=== PATIENT | male | born 1955 | race Caucasian/White ===

== ENCOUNTER → 2017-07-01 | Outpatient (REF) | payer BC ==
[2017-07-13 00:08] LABS: DEOXYCORTICOSTERONE LEVEL 9.2 ng/dL (.)
== END ==
LOC: M LABDRAW1 13:08
PROVIDERS: ATTEND Physical Medicine & Rehabilitation
DX: M51.37 Other intervertebral disc degeneration, lumbosacral region (principal)
CPT/HCPCS: 36415; 80307; 81374; 82633; 85652; 86140; G0480

== ENCOUNTER → 2017-08-15 | Outpatient (REF) | payer BC | LOC: M LAB REF 11:02 | PROVIDERS: ATTEND Ophthalmology | DX: H02.831 Dermatochalasis of right upper eyelid (principal); H02.834 Dermatochalasis of left upper eyelid ==

== ENCOUNTER → 2018-06-23 | Outpatient (REF) | payer BC | LOC: M LABDRAW1 15:48 | DX: Z79.891 Long term (current) use of opiate analgesic (principal) | CPT/HCPCS: 80307 ==

== ENCOUNTER → 2018-12-18 | Outpatient (REF) | payer OTHER ==
[2018-12-18 14:06] LABS: COMPLEMENT C3 157 MG/DL (90-180); COMPLEMENT C4 34 MG/DL (10-40); TOTAL PROTEIN 7.5 GM/DL (6.4-8.2)
[2018-12-18 14:10] LABS: URINE TOTAL PROTEIN 38.5 MG/DL (0-12)
[2018-12-18 14:13] LABS: HEPATITIS B SURFACE ANTIBODY NEGATIVE (POSITIVE)
[2018-12-18 14:24] LABS: HEPATITIS B SURFACE ANTIGEN NEGATIVE (NEGATIVE)
[2018-12-18 14:52] LABS: HEPATITIS B CORE ANTIBODY IGM NEGATIVE (NEGATIVE); HEPATITIS C VIRUS ABY INDEX 0.1 INDEX (<0.8)
[2018-12-19 10:18] LABS: ALBUMIN 4.48 GM/DL (3.29-5.55); ALBUMIN % 59.7 % (55.8-66.1); ALPHA-1-GLOBULIN % 3.6 % (2.9-4.9); ALPHA-1-GLOBULINS 0.27 GM/DL (0.17-0.41)
[2018-12-19 10:19] LABS: ALPHA-2-GLOBULINS % 10.7 % (7.1-11.8); BETA-1-GLOBULINS 0.47 GM/DL (0.28-0.60); BETA-1-GLOBULINS % 6.3 % (4.7-7.2); BETA-2-GLOBULINS 0.45 GM/DL (0.19-0.55); GAMMA GLOBULIN % 13.7 % (11.1-18.8); GAMMA GLOBULINS 1.03 GM/DL (0.65-1.58)
[2018-12-21 13:49] LABS: UPEP INTERPRETATION NO M-SPIKE NOTED; URINE VOLUME RANDOM ML
[2018-12-21 14:14] LABS: ANCA-ATYPICAL <1:20 titer (Neg:<1:20); ANTI DOUBLE STRAND-DNA AB 2 IU/mL (0-9); ANTI-GLOMERULAR BASEMENT MEMB 3 units (0-20); ANTINUCLEAR ANTIBODIES DIRECT Negative (Negative); CYTOPLASMIC NEUTROP AB ANCA-C <1:20 titer (Neg:<1:20); PERINUCLEAR AB ANCA-P <1:20 titer (Neg:<1:20)
== END ==
LOC: M LAB REF 13:04
PROVIDERS: ATTEND Internal Medicine Nephrology
DX: I12.9 Hypertensive chronic kidney disease with stage 1 through stage 4 chronic kidney disease, or unspecified chronic kidney disease (principal); R80.9 Proteinuria, unspecified

== ENCOUNTER → 2021-03-24 | Outpatient (REF) | payer OTHER | LOC: M LAB REF 17:14 | PROVIDERS: ATTEND Internal Medicine Nephrology | DX: N18.2 Chronic kidney disease, stage 2 (mild) (principal) ==

== ENCOUNTER → 2021-10-30 | Outpatient (REF) | payer MEDICARE, OTHER | LOC: M LAB REF 16:45 | PROVIDERS: ATTEND Nurse Practitioner Family | DX: N18.31 Chronic kidney disease, stage 3a (principal) ==

== ENCOUNTER → 2022-03-16 | Outpatient (CLI) | payer MEDICARE, OTHER ==
[~2022-03-16] MED LIST: ASPI325T57 PO; LIDOCAINE 1% MDV 20ML VIAL As Ordered ONE
[2022-03-16 14:06] VITALS: BP 170/90
== END ==
LOC: M IRPRO 13:13
PROVIDERS: ATTEND Otolaryngology
DX: C76.8 Malignant neoplasm of other specified ill-defined sites (principal)

== ENCOUNTER → 2022-04-19 | Outpatient (CLI) | payer MEDICARE, OTHER ==
[~2022-04-19] MED LIST changes: +ALOG25TA PO; +AMIL25TA PO; +AMLO1TAB25 PO; +ATOR40TA75 PO; +BASA100I SQ; +CARV25TA PO; +HYDR-3713 PO; -LIDOCAINE 1% MDV 20ML VIAL As Ordered ONE; +METF10004 PO; +MINO2.5T PO; +OXYC1SOL3 PO; +STEG5TAB PO; +VALS320T3 PO
== END ==
LOC: M ONCR 12:55
PROVIDERS: ATTEND General Practice
DX: C01 Malignant neoplasm of base of tongue (principal); R25.2 Cramp and spasm; Z87.891 Personal history of nicotine dependence; Z91.041 Radiographic dye allergy status; Z79.84 Long term (current) use of oral hypoglycemic drugs; Z79.4 Long term (current) use of insulin; Z79.899 Other long term (current) drug therapy; Z79.891 Long term (current) use of opiate analgesic
CPT/HCPCS: 31575; G0463

== ENCOUNTER → 2022-05-06 | Outpatient (CLI) | payer MEDICARE, OTHER ==
[~2022-05-06] MED LIST changes: +ACETAMINOPHEN 325 MG TAB As Ordered ONE; +ACETAMINOPHEN TAB 650MG DOSE (2X325MG) PO ONE; +B-12100010 PO; +ELIQ5TAB4 PO; +LIDOCAINE 1% MDV 20ML VIAL As Ordered ONE; +MIDAZOLAM INJ 2MG/2ML VIAL (J2250 PER 1MG) As Ordered ONE; +MIDAZOLAM INJ 2MG/2ML VIAL (J2250 PER 1MG) IV ONE; +NS 1,000 ML IV SCH; +ONDA-84 PO; +PROC10TA5 PO; +ceFAZolin 2 GM/D5W 50 ML IV BAG (J0690 PER 500MG) As Ordered ONE; +ceFAZolin SOD 2 GM in IV 1 EA IV ONE; +diphenhydrAMINE 50MG/ML VIAL (J1200) As Ordered ONE; +fentaNYL 100 MCG/2 ML INJECTION As Ordered ONE; +fentaNYL 100 MCG/2 ML INJECTION IV ONE
[2022-05-06 12:45] VITALS: BP 147/69
== END ==
LOC: M IRPRO 09:33
PROVIDERS: ATTEND Specialist
DX: C01 Malignant neoplasm of base of tongue (principal)
CPT/HCPCS: 36561; 99152; 99153; C1769; C1788; C1894; J0690; J1642; J1644; J2250; J3010

== ENCOUNTER → 2022-05-19 | Outpatient (RCR) | payer MEDICARE, OTHER ==
[~2022-05-19] MED LIST changes: -ACETAMINOPHEN 325 MG TAB As Ordered ONE; -ACETAMINOPHEN TAB 650MG DOSE (2X325MG) PO ONE; +LIDO1CRE42 TOP; -LIDOCAINE 1% MDV 20ML VIAL As Ordered ONE; -MIDAZOLAM INJ 2MG/2ML VIAL (J2250 PER 1MG) As Ordered ONE; -MIDAZOLAM INJ 2MG/2ML VIAL (J2250 PER 1MG) IV ONE; -NS 1,000 ML IV SCH; +OXYC-517 PO; -ceFAZolin 2 GM/D5W 50 ML IV BAG (J0690 PER 500MG) As Ordered ONE; -ceFAZolin SOD 2 GM in IV 1 EA IV ONE; -diphenhydrAMINE 50MG/ML VIAL (J1200) As Ordered ONE; -fentaNYL 100 MCG/2 ML INJECTION As Ordered ONE; -fentaNYL 100 MCG/2 ML INJECTION IV ONE
== END ==
LOC: M ONCR 04-26 08:03
PROVIDERS: ATTEND General Practice
DX: C01 Malignant neoplasm of base of tongue (principal)

== ENCOUNTER → 2022-06-02 | Outpatient (CLI) | payer MEDICARE, OTHER ==
[~2022-06-02] MED LIST changes: +CEPH500C PO; +CIPR750T2 PO; +FLOM0.4C39 PO; +LEVO1TAB38 PO; +MAGICMW PO; +MORP-69 PO; +NYST50SS PO; +OXYC10TA12 PO; +POTA-151 PO
== END ==
LOC: M ONCR 10:37
PROVIDERS: ATTEND Dietitian, Registered
DX: C01 Malignant neoplasm of base of tongue (principal); Z71.3 Dietary counseling and surveillance

== ENCOUNTER → 2022-06-18 | Outpatient (RCR) | payer MEDICARE, OTHER ==
[~2022-06-18] MED LIST changes: -CIPR750T2 PO; -FLOM0.4C39 PO; -POTA-151 PO
== END ==
LOC: M ONCR 05-20 13:26
PROVIDERS: ATTEND General Practice
DX: C01 Malignant neoplasm of base of tongue (principal)

== ENCOUNTER 2022-06-30 13:29 | Outpatient (RCR) | payer MEDICARE, OTHER ==
[2022-07-14] MEDS ORDERED: OXYC10TA12 PO (11:26)
== END 2022-07-19 ==
LOC: M ONCR 13:29
PROVIDERS: ATTEND General Practice
DX: C01 Malignant neoplasm of base of tongue (principal)

== ENCOUNTER → 2022-07-14 | Outpatient (CLI) | payer MEDICARE, OTHER | LOC: M ONCR 10:17 | PROVIDERS: ATTEND General Practice | DX: C01 Malignant neoplasm of base of tongue (principal); Z92.21 Personal history of antineoplastic chemotherapy; Z92.3 Personal history of irradiation ==

== ENCOUNTER → 2022-08-04 | Outpatient (CLI) | payer MEDICARE, OTHER ==
[~2022-08-04] MED LIST changes: +CIPR750T2 PO; +FLOM0.4C39 PO; +POTA-151 PO; +SODIUM CHLORIDE 0.9% INJ 10 ML SYR IV PRN
[2022-08-04 12:13] LABS: BASO % 0.5 % (0.0-1.0); EOS % 0.7 % (0.0-3.0); HEMOGLOBIN 10.5 g/dl (13.5-17.5); LYMPH # 0.3 10^3/uL (1.5-5.0); LYMPH % 5.7 % (24.0-44.0); MEAN CORPUSCULAR HEMOGLOBIN 30.2 pg (27.0-33.0); MEAN CORPUSCULAR VOLUME 86.2 fl (80.0-96.0); MONO # 0.6 10^3/uL (0.0-0.8); MONO % 12.4 % (2.0-8.0); NEUTROPHILS # 3.5 10^3/uL (1.5-8.5); NEUTROPHILS % 79.8 % (36.0-66.0); PLATELET COUNT, AUTOMATED 212 10^3/uL (150-450); RED BLOOD COUNT 3.48 10^6/uL (4.30-6.10); WHITE BLOOD COUNT 4.4 10^3/uL (4.0-10.0)
[2022-08-04 12:49] LABS: ALBUMIN 3.1 G/DL (3.2-5.2); BILIRUBIN,TOTAL 1.2 MG/DL (0.3-1.2); CALCIUM LEVEL 8.6 MG/DL (8.3-10.6); CREATININE FOR GFR 1.3 MG/DL (0.70-1.30); POTASSIUM SERUM 2.9 MMOL/L (3.5-5.1); TOTAL PROTEIN 5.9 G/DL (5.7-8.2)
== END ==
LOC: M ONCR 11:47
PROVIDERS: ATTEND General Practice
DX: R30.0 Dysuria (principal); R39.198 Other difficulties with micturition
CPT/HCPCS: 36415; 36591; 80053; 81000; 85025; 87086; G0463

== ENCOUNTER → 2022-08-20 | Outpatient (CLI) | payer MEDICARE, OTHER ==
[~2022-08-20] MED LIST changes: -SODIUM CHLORIDE 0.9% INJ 10 ML SYR IV PRN
== END ==
LOC: M ONCR 11:23
PROVIDERS: ATTEND General Practice
DX: C02.9 Malignant neoplasm of tongue, unspecified (principal); H92.02 Otalgia, left ear; M54.2 Cervicalgia; R22.1 Localized swelling, mass and lump, neck

== ENCOUNTER → 2022-10-04 | Outpatient (CLI) | payer MEDICARE, OTHER ==
[~2022-10-04] MED LIST changes: +NYST-38 PO; -NYST50SS PO
== END ==
LOC: M PLARAD 08:58
PROVIDERS: ATTEND General Practice
DX: C01 Malignant neoplasm of base of tongue (principal)
CPT/HCPCS: 78815; A9552

== ENCOUNTER → 2022-10-08 | Outpatient (CLI) | payer MEDICARE, OTHER | LOC: M ONCR 15:24 | PROVIDERS: ATTEND General Practice | DX: C01 Malignant neoplasm of base of tongue (principal); I89.0 Lymphedema, not elsewhere classified; R47.1 Dysarthria and anarthria; Z79.01 Long term (current) use of anticoagulants; Z79.4 Long term (current) use of insulin; Z79.84 Long term (current) use of oral hypoglycemic drugs; Z79.891 Long term (current) use of opiate analgesic; Z79.899 Other long term (current) drug therapy; Z87.891 Personal history of nicotine dependence; Z91.041 Radiographic dye allergy status; Z92.21 Personal history of antineoplastic chemotherapy; Z92.3 Personal history of irradiation | CPT/HCPCS: 31575; G0463 ==

== ENCOUNTER → 2022-11-16 | Outpatient (RCR) | payer MEDICARE, OTHER ==
[~2022-11-16] MED LIST changes: +SALA1TAB PO
== END ==
LOC: M PT 10-22 14:51
PROVIDERS: ATTEND General Practice
DX: I89.0 Lymphedema, not elsewhere classified (principal); C01 Malignant neoplasm of base of tongue

== ENCOUNTER 2022-11-26 15:45 | Outpatient (RCR) | payer MEDICARE, OTHER | END 2022-12-17 | LOC: M PT 15:45 | PROVIDERS: ATTEND General Practice | DX: I89.0 Lymphedema, not elsewhere classified (principal) ==

== ENCOUNTER → 2023-01-06 | Outpatient (CLI) | payer MEDICARE, OTHER ==
[2023-01-06 16:53] LABS: FREE T4 0.78 NG/DL (0.89-1.76); THYROID STIMULATING HORMONE 3.31 uIU/ML (0.55-4.78)
== END ==
LOC: M ONCR 14:09
PROVIDERS: ATTEND General Practice
DX: C01 Malignant neoplasm of base of tongue (principal); I89.0 Lymphedema, not elsewhere classified; R68.2 Dry mouth, unspecified; Z79.01 Long term (current) use of anticoagulants; Z79.84 Long term (current) use of oral hypoglycemic drugs; Z79.891 Long term (current) use of opiate analgesic; Z79.899 Other long term (current) drug therapy; Z87.891 Personal history of nicotine dependence; Z91.041 Radiographic dye allergy status; Z92.21 Personal history of antineoplastic chemotherapy; Z92.3 Personal history of irradiation
CPT/HCPCS: 31575; 36415; 84439; 84443; G0463

== ENCOUNTER → 2023-03-15 | Outpatient (POV) | payer MEDICARE, OTHER ==
[~2023-03-15] VITALS: Ht 175.3 cm; Wt 78.1 kg
[2023-03-15 09:00] VITALS: BP 166/77; O2SAT 99
== END ==
LOC: M IRPOV 08:50
PROVIDERS: ATTEND Radiology Diagnostic Radiology
DX: Z45.2 Encounter for adjustment and management of vascular access device (principal); Z79.01 Long term (current) use of anticoagulants; Z91.041 Radiographic dye allergy status

== ENCOUNTER → 2023-07-29 | Outpatient (CLI) | payer MEDICARE, OTHER ==
[~2023-07-29] MED LIST changes: +AMIT50TA PO; -LIDO1CRE42 TOP; +LIDO30CR18 TOP
== END ==
LOC: M ONCR 13:23
PROVIDERS: ATTEND General Practice
DX: Z08 Encounter for follow-up examination after completed treatment for malignant neoplasm (principal); Z85.810 Personal history of malignant neoplasm of tongue; Z71.2 Person consulting for explanation of examination or test findings; Z79.01 Long term (current) use of anticoagulants; Z79.899 Other long term (current) drug therapy; Z87.891 Personal history of nicotine dependence; Z91.041 Radiographic dye allergy status; Z92.21 Personal history of antineoplastic chemotherapy; Z92.3 Personal history of irradiation
CPT/HCPCS: 31575; G0463

== ENCOUNTER → 2023-11-01 | Outpatient (CLI) | payer MEDICARE | LOC: M ONCR 13:26 | PROVIDERS: ATTEND General Practice | DX: Z08 Encounter for follow-up examination after completed treatment for malignant neoplasm (principal); Z85.810 Personal history of malignant neoplasm of tongue; Z92.21 Personal history of antineoplastic chemotherapy; Z92.3 Personal history of irradiation; Z87.891 Personal history of nicotine dependence; Z91.040 Latex allergy status; Z79.01 Long term (current) use of anticoagulants; Z79.899 Other long term (current) drug therapy; Z71.2 Person consulting for explanation of examination or test findings | CPT/HCPCS: 31575; G0463 ==

== ENCOUNTER → 2023-11-04 | Outpatient (CLI) | payer MEDICARE | LOC: M RAD 17:17 | PROVIDERS: ATTEND General Practice | DX: C01 Malignant neoplasm of base of tongue (principal); J33.8 Other polyp of sinus ==

== ENCOUNTER → 2024-07-13 | Outpatient (CLI) | payer MEDICARE | LOC: M ONCR 16:00 | PROVIDERS: ATTEND General Practice | DX: C01 Malignant neoplasm of base of tongue (principal); R68.2 Dry mouth, unspecified; Z79.01 Long term (current) use of anticoagulants; Z79.899 Other long term (current) drug therapy; Z87.891 Personal history of nicotine dependence; Z91.041 Radiographic dye allergy status; Z92.21 Personal history of antineoplastic chemotherapy; Z92.3 Personal history of irradiation ==

== ENCOUNTER → 2025-01-08 | Outpatient (CLI) | payer MEDICARE | LOC: M RAD 11:27 | PROVIDERS: ATTEND General Practice | DX: C01 Malignant neoplasm of base of tongue (principal) ==

== ENCOUNTER → 2025-01-15 | Outpatient (CLI) | payer MEDICARE ==
[~2025-01-15] MED LIST changes: -FLOM0.4C39 PO; +TAMS-18 PO
== END ==
LOC: M ONCR 13:29
PROVIDERS: ATTEND General Practice
DX: Z08 Encounter for follow-up examination after completed treatment for malignant neoplasm (principal); Z85.810 Personal history of malignant neoplasm of tongue; Z87.891 Personal history of nicotine dependence; Z79.01 Long term (current) use of anticoagulants; Z79.899 Other long term (current) drug therapy; Z92.21 Personal history of antineoplastic chemotherapy; Z92.3 Personal history of irradiation; H92.02 Otalgia, left ear; L59.8 Other specified disorders of the skin and subcutaneous tissue related to radiation
CPT/HCPCS: 31575; G0463

== ENCOUNTER → 2025-07-08 | Outpatient (CLI) | payer MEDICARE | LOC: M RAD 13:14 | PROVIDERS: ATTEND General Practice | DX: C01 Malignant neoplasm of base of tongue (principal); M79.89 Other specified soft tissue disorders; J34.1 Cyst and mucocele of nose and nasal sinus; M47.812 Spondylosis without myelopathy or radiculopathy, cervical region ==

== ENCOUNTER → 2025-07-15 | Outpatient (CLI) | payer MEDICARE | LOC: M ONCR 13:23 | PROVIDERS: ATTEND General Practice | DX: Z08 Encounter for follow-up examination after completed treatment for malignant neoplasm (principal); Z85.810 Personal history of malignant neoplasm of tongue; Z87.891 Personal history of nicotine dependence; Z92.21 Personal history of antineoplastic chemotherapy; Z92.3 Personal history of irradiation; Z91.041 Radiographic dye allergy status; Z79.01 Long term (current) use of anticoagulants; Z79.899 Other long term (current) drug therapy | CPT/HCPCS: 31575; G0463 ==

== ENCOUNTER → 2025-07-22 | Outpatient (CLI) | payer MEDICARE ==
[~2025-07-22] VITALS: Ht 175.3 cm; Wt 89.9 kg
[~2025-07-22] MED LIST changes: +DULO30CA9 PO
[2025-07-22 15:09] VITALS: BP 156/82; O2SAT 97
== END ==
LOC: M PAL 14:54
PROVIDERS: ATTEND Physician Assistant
DX: Z51.5 Encounter for palliative care (principal); G89.29 Other chronic pain; M47.812 Spondylosis without myelopathy or radiculopathy, cervical region; Z85.810 Personal history of malignant neoplasm of tongue; Z79.01 Long term (current) use of anticoagulants; Z79.899 Other long term (current) drug therapy; Z92.21 Personal history of antineoplastic chemotherapy; Z92.3 Personal history of irradiation; Z91.041 Radiographic dye allergy status

== ENCOUNTER → 2025-08-07 | Outpatient (CLI) | payer MEDICARE ==
[~2025-08-07] VITALS: Ht 175.3 cm; Wt 89.5 kg
[~2025-08-07] MED LIST changes: +DULO1CAP6 PO; +GLIP5TAB17 PO
[2025-08-07 14:51] VITALS: BP 144/74; O2SAT 94
== END ==
LOC: M PAL 14:22
PROVIDERS: ATTEND Physician Assistant
DX: Z51.5 Encounter for palliative care (principal); M25.50 Pain in unspecified joint; M54.12 Radiculopathy, cervical region; Z85.810 Personal history of malignant neoplasm of tongue; Z92.21 Personal history of antineoplastic chemotherapy; Z92.3 Personal history of irradiation; Z79.891 Long term (current) use of opiate analgesic